=== PATIENT | female | born 1980 | race African-American/Black ===

== ENCOUNTER 2016-06-12 17:42 | Emergency (ER) | payer SELFPAY ==
[~2016-06-12] VITALS: Ht 157.5 cm; Wt 86.3 kg
[~2016-06-12 17:42] MED LIST: AMOXICILLIN500 MG PO; ATIVAN1 MG PO; AUGMENTIN875 MG PO; CELEXA20 MG PO; HALLS COUGH DR1 EACH MM; HYDROCHLOROTHIA25 MG PO; INDOCIN25 MG PO
[2016-06-12 18:08] VITALS: BP 138/88
== END 2016-06-12 18:18 | disposition left against medical advice (07) ==
LOC: EME 17:42
DX: N91.2 Amenorrhea, unspecified (principal); Z53.21 Procedure and treatment not carried out due to patient leaving prior to being seen by health care provider
CPT/HCPCS: 84702

== ENCOUNTER → 2016-08-05 | Outpatient (CLI) | payer OTHER | END | disposition home or self-care (01) | LOC: CDC 15:10 | DX: O10.919 Unspecified pre-existing hypertension complicating pregnancy, unspecified trimester (principal) | CPT/HCPCS: 93000 ==

== ENCOUNTER 2017-01-14 19:09 | Emergency (ER) | payer OTHER ==
[~2017-01-14] VITALS: Ht 157.5 cm; Wt 93.9 kg
[2017-01-14 21:15] VITALS: BP 133/79
== END 2017-01-14 21:15 | disposition home or self-care (01) ==
LOC: EME 19:09
PROC: 3E0234Z Introduction of Serum, Toxoid and Vaccine into Muscle, Percutaneous Approach (ICD-10-PCS; principal; 2017-01-14)
DX: S91.332A Puncture wound without foreign body, left foot, initial encounter (principal); Z23 Encounter for immunization; W45.0XXA Nail entering through skin, initial encounter; Z3A.38 38 weeks gestation of pregnancy; O10.913 Unspecified pre-existing hypertension complicating pregnancy, third trimester; O99.333 Smoking (tobacco) complicating pregnancy, third trimester; F17.200 Nicotine dependence, unspecified, uncomplicated
CPT/HCPCS: 99281; 99283

== ENCOUNTER 2017-01-27 04:50 | Inpatient (IN) | payer OTHER ==
[2017-01-27] VITALS (11 sets, daily range): BP systolic 109–132; BP diastolic 55–77
[~2017-01-27] VITALS: Ht 157.5 cm; Wt 95.5 kg
[~2017-01-27 04:50] MED LIST changes: +LABETALOL HCL100 MG PO; +PRENATAL TABLE1 EAC3 PO
[2017-01-27] MEDS ORDERED: CHILD ASPIRIN81 M1 PO (05:47)
[2017-01-27 05:49] LABS: HEMATOCRIT 25.7 % (36.0-46.0); MCH 26.9 PG (29.0-34.0); MCHC 33.1 G/DL (30.0-36.0); MCV 81.3 FL (83-99); MEAN PLAT.VOLUME 10.9 uM^3 (9.5-12.4); PLATELET COUNT 295 K/uL (156-360); RBC DIS.WIDTH-CV 15.1 % (11.8-14.6); RBC DIS.WIDTH-SD 44.5 % (39-53); RED BLOOD COUNT 3.16 M/uL (3.80-5.20); WHITE BLOOD COUNT 12.4 K/uL (4.1-10.2)
[2017-01-28 03:00] VITALS: BP 114/56
[2017-01-28 06:51] LABS: EOSINOPHIL (%) 0.6 % (0-5); EOSINOPHIL COUNT 0.1 K/uL (0-0.3); HEMATOCRIT 29.3 % (36.0-46.0); IMMATURE GRANULOCYTE (%) 0.5 % (0.0-0.7); IMMATURE GRANULOCYTE COUNT 0.1 K/uL; INSTRUMENT ABS NEUTROPHIL CT 10.8 K/uL; LYMPHOCYTE COUNT 2.3 K/uL (1.0-2.8); MCH 26.4 PG (29.0-34.0); MCHC 32.4 G/DL (30.0-36.0); MCV 81.4 FL (83-99); MONOCYTE (%) 11.2 % (3-12); MONOCYTE COUNT 1.7 K/uL (0-0.8); NEUTROPHIL (%) 72.4 % (45-76); NEUTROPHIL COUNT 10.8 K/uL (1.8-6.4); RBC DIS.WIDTH-SD 44.1 % (39-53)
[2017-01-28 07:18] VITALS: BP 115/55
[2017-01-28 07:59] LABS: PLAT.SUFFICIENCY ADEQUATE
[2017-01-28 08:00] LABS: PLATELET COUNT 199 K/uL (156-360)
[2017-01-28 11:59] VITALS: BP 119/68
[2017-01-28 15:41] LABS: EOSINOPHIL (%) 1.6 % (0-5); EOSINOPHIL COUNT 0.2 K/uL (0-0.3); HEMATOCRIT 28.6 % (36.0-46.0); IMMATURE GRANULOCYTE (%) 0.5 % (0.0-0.7); IMMATURE GRANULOCYTE COUNT 0.1 K/uL; INSTRUMENT ABS NEUTROPHIL CT 8.9 K/uL; LYMPHOCYTE COUNT 2.6 K/uL (1.0-2.8); MCH 27.4 PG (29.0-34.0); MCHC 33.6 G/DL (30.0-36.0); MCV 81.7 FL (83-99); MEAN PLAT.VOLUME 10.7 uM^3 (9.5-12.4); MONOCYTE (%) 11.5 % (3-12); MONOCYTE COUNT 1.5 K/uL (0-0.8); NEUTROPHIL (%) 66.7 % (45-76); NEUTROPHIL COUNT 8.9 K/uL (1.8-6.4); PLATELET COUNT 195 K/uL (156-360); RBC DIS.WIDTH-CV 15.2 % (11.8-14.6); RBC DIS.WIDTH-SD 44.8 % (39-53); WHITE BLOOD COUNT 13.2 K/uL (4.1-10.2)
[2017-01-28 15:46] VITALS: BP 119/59
[2017-01-29 07:40] VITALS: BP 120/61
[2017-01-29] MEDS ORDERED: ENDOCET 5-3251 EACH PO (09:13)
[2017-01-29] MEDS ORDERED: DOCUSATE SODIU100 MG PO (09:13)
[2017-01-29] MEDS ORDERED: IBUPROFEN800 MG PO (09:13)
[2017-01-29 11:06] VITALS: BP 134/77
== END 2017-01-29 15:20 | disposition home or self-care (01) | DRG 765 ==
LOC: 2WEST 04:50 → 2SOUTH 12:42 → 2WEST 01-29 15:20
PROVIDERS: Obstetrics & Gynecology
PROC: 10D00Z1 Extraction of Products of Conception, Low, Open Approach (ICD-10-PCS; principal; 2017-01-27)
DX: O34.211 Maternal care for low transverse scar from previous cesarean delivery (principal); O69.81X0 Labor and delivery complicated by cord around neck, without compression, not applicable or unspecified; O99.824 Streptococcus B carrier state complicating childbirth; O10.92 Unspecified pre-existing hypertension complicating childbirth; O99.334 Smoking (tobacco) complicating childbirth; F17.210 Nicotine dependence, cigarettes, uncomplicated; O99.214 Obesity complicating childbirth; E66.9 Obesity, unspecified; Z68.33 Body mass index [BMI] 33.0-33.9, adult; Z79.82 Long term (current) use of aspirin; Z23 Encounter for immunization; Z3A.39 39 weeks gestation of pregnancy; Z37.0 Single live birth
CPT/HCPCS: 85025; 85025 91; 85027; 86850; 86900; 86901; 90686; J0690; J1100; J1170; J1885; J2250; J2274; J2405; J3010; J7120

== ENCOUNTER 2017-02-02 11:09 | Emergency (ER) | payer OTHER ==
[~2017-02-02] VITALS: Ht 157.5 cm; Wt 98.1 kg
[~2017-02-02 11:09] MED LIST changes: +CHILD ASPIRIN81 M1 PO; +DOCUSATE SODIU100 MG PO; +ENDOCET 5-3251 EACH PO; +IBUPROFEN800 MG PO
[2017-02-02 12:02] LABS: ADD MIUA? YES; BILIRUBIN NEGATIVE; BLOOD LARGE; COLOR YELLOW ((YELLOW)); GLUCOSE (STRIP) NEGATIVE; KETONES NEGATIVE; LEUKOCYTES MODERATE; NITRITE NEGATIVE; PROTEIN (STRIP) 100; SPECIFIC GRAVITY 1.013 (1.000-1.030); UROBILINOGEN 0.2 MG/DL (0.2-1.0)
[2017-02-02 12:15] LABS: HEMATOCRIT 29.3 % (36.0-46.0); MCH 26.4 PG (29.0-34.0); MCHC 33.1 G/DL (30.0-36.0); MCV 79.8 FL (83-99); MEAN PLAT.VOLUME 9.8 uM^3 (9.5-12.4); NRBC (%) 0.4 /100 WBC (0-0); RBC DIS.WIDTH-CV 14.7 % (11.8-14.6); RBC DIS.WIDTH-SD 42.6 % (39-53); RED BLOOD COUNT 3.67 M/uL (3.80-5.20); WHITE BLOOD COUNT 8.1 K/uL (4.1-10.2)
[2017-02-02 12:40] LABS: CHLORIDE 110 mEq/L (99-109); POTASSIUM 4.1 mEq/L (3.7-5.4); SODIUM 140 mEq/L (136-147)
[2017-02-02 12:42] LABS: GLUCOSE 76 mg/dL (70-99)
[2017-02-02 12:43] LABS: ANION GAP 9 MEQ/L (2-14)
[2017-02-02 12:44] LABS: TOTAL BILIRUBIN 0.2 mg/dL (0.0-1.0)
[2017-02-02 12:45] LABS: PLATELET COUNT 328 K/uL (156-360)
[2017-02-02 12:46] LABS: ALKALINE PHOSPHATASE 106 IU/L (3-129); GFR ESTIMATE (CALCULATED) > 59 mL/min/
[2017-02-02 12:47] LABS: UREA NITROGEN (BUN) 16 mg/dL (9-23)
[2017-02-02 12:49] LABS: LIPASE 18 U/L (1.0-51.0)
[2017-02-02 12:49] LABS: EPITHELIAL CELLS 2+ /HPF; MUCUS NONE SEEN /LPF; RED BLOOD CELLS TNTC /HPF (0-5)
[2017-02-02 12:50] LABS: BACTERIA 1+ /HPF; UCUL ADDED? YES
[2017-02-02 12:53] LABS: EOSINOPHIL (%) 4.8 % (0-5); EOSINOPHIL COUNT 0.4 K/uL (0-0.3); IMMATURE GRANULOCYTE (%) 1.5 % (0.0-0.7); IMMATURE GRANULOCYTE COUNT 0.1 K/uL; INSTRUMENT ABS NEUTROPHIL CT 4.8 K/uL; LYMPHOCYTE COUNT 2.1 K/uL (1.0-2.8); MONOCYTE (%) 7.5 % (3-12); MONOCYTE COUNT 0.6 K/uL (0-0.8); NEUTROPHIL (%) 59.5 % (45-76); NEUTROPHIL COUNT 4.8 K/uL (1.8-6.4)
[2017-02-02] MEDS ORDERED: LASIX20 MG PO (15:58)
[2017-02-02] MEDS ORDERED: MACROBID100 MG PO (15:58)
[2017-02-02 16:23] VITALS: BP 176/93
[2017-02-06] MEDS ORDERED: PROCARDIA XL30 MG PO (17:13)
[2017-02-06] MEDS ORDERED: HYDROCHLOROTHIA25 MG PO (17:24)
== END 2017-02-02 16:24 | disposition home or self-care (01) ==
LOC: EME 11:09
PROVIDERS: Emergency Medicine
DX: O90.89 Other complications of the puerperium, not elsewhere classified (principal); G89.18 Other acute postprocedural pain; R10.10 Upper abdominal pain, unspecified; O99.53 Diseases of the respiratory system complicating the puerperium; J90 Pleural effusion, not elsewhere classified; O99.285 Endocrine, nutritional and metabolic diseases complicating the puerperium; E87.70 Fluid overload, unspecified; Z98.890 Other specified postprocedural states; O99.345 Other mental disorders complicating the puerperium; F41.9 Anxiety disorder, unspecified; I10 Essential (primary) hypertension; E66.9 Obesity, unspecified; Z68.39 Body mass index [BMI] 39.0-39.9, adult; F17.200 Nicotine dependence, unspecified, uncomplicated
CPT/HCPCS: 74177; 80053; 81003; 83690; 85025; 87086; 99281; 99285; J1940; J7030